=== PATIENT | female | born 1995 | race African-American/Black ===

== ENCOUNTER 2017-06-06 00:40 | Emergency (ER) | payer SELFPAY ==
[~2017-06-06] VITALS: Ht 149.9 cm; Wt 58.1 kg
--- OUTSIDE RECORDS SUMMARY | 2017-06-06 00:43 | XMS REPORT ---
Author Author [facility] Address Unknown Phone Unavailable Care Team Providers Care Infertility Medical Assistant Name Role Phone BISI TIM Unavailable Unavailable RENATO CALDERON Unavailable Unavailable LOIS KELLY Unavailable Unavailable Problems This patient has no known problems. Allergies, Adverse Reactions, Alerts This patient has no known allergies or adverse reactions. Medications This patient has no known medications. Results Test Description Test Time Test Comments Text Results Atomic Results Result Comments WET PREP 2017-03-17 00:26:00 WBC WET PREP (BEAKER) (test arxn=183) Few white blood cells seen CLUE CELLS (BEAKER) (test bqes=754) No clue cells seen YEAST WET PREP (BEAKER) (test tvrw=214) No budding yeast seen TRICH WET PREP (BEAKER) (test ntil=474) No Trichomonas seen BACT WET PREP (BEAKER) (test dazg=726) No bacteria seen SCREEN, [id number] 22:57:00* Test Item Value Reference Range Comments TEST URINE (BEAKER) (test xudq=616) Negative URINALYSIS W/ REFLEX URINE [id number] 22:55:00* Test Item Value Reference Range Comments COLOR (BEAKER) (test dgti=762) Dark Yellow CLARITY (BEAKER) (test snuh=985) Slightly Hazy SPECIFIC GRAVITY UA (BEAKER) (test uxxz=505) 1.025 1.001-1.035 PH UA (BEAKER) (test crzd=982) 6.0 5.0-8.0 PROTEIN UA (BEAKER) (test icdt=966) Negative Negative GLUCOSE UA (BEAKER) (test tkqh=500) Negative Negative KETONES UA (BEAKER) (test etgo=828) Negative Negative BILIRUBIN UA (BEAKER) (test gtjv=136) Negative Negative BLOOD UA (BEAKER) (test txdj=312) Large Negative NITRITE UA (BEAKER) (test umua=335) Negative Negative LEUKOCYTE ESTERASE UA (BEAKER) (test upnd=376) Negative Negative UROBILINOGEN UA (BEAKER) (test rpgr=685) 0.2 mg/dL 0.2-1.0 BACTERIA (BEAKER) (test hqvv=468) Rare MUCUS (BEAKER) (test eemz=8183) Moderate RBC UA-MANUAL (BEAKER) (test uwct=5178) 20-50 /HPF WBC UA-MANUAL (BEAKER) (test hgye=7993) <5 /HPF SQUAMOUS EPITHELIAL MANUAL (BEAKER) (test znxi=7216) <5 /HPF SOURCE(BEAKER) (test kxiy=1390) URINE [id number] 12:16:00* Test Item Value Reference Range Comments CULTURE (BEAKER) (test ctsa=4852) ESCHERICHIA COLI >100,000 col/mL Escherichia coli Amikacin (test code=1) Ampicillin + Sulbactam (test code=6) Aztreonam (test code=32) Cefepime (test code=51) Cefoxitin (test code=68) Ceftazidime (test code=27) Ceftriaxone (test code=52) Ertapenem (test code=38) Gentamicin (test code=18) Levofloxacin (test code=22) Meropenem (test code=34) Nitrofurantoin (test code=23) Piperacillin + Tazobactam (test code=29) Tetracycline (test code=2) Tobramycin (test code=25) Trimethoprim + Sulfamethoxazole (test code=47) URINALYSIS W/ [id number] 13:29:00* Test Item Value Reference Range Comments COLOR (BEAKER) (test nslp=625) Light Yellow CLARITY (BEAKER) (test qxij=401) Cloudy SPECIFIC GRAVITY UA (BEAKER) (test vcjo=721) 1.020 1.001-1.035 PH UA (BEAKER) (test chzv=840) 7.0 5.0-8.0 PROTEIN UA (BEAKER) (test rimp=964) 30 mg/dL Negative GLUCOSE UA (BEAKER) (test hgqj=151) Negative Negative KETONES UA (BEAKER) (test ypjm=165) Negative Negative BILIRUBIN UA (BEAKER) (test gjfi=092) Negative Negative BLOOD UA (BEAKER) (test mity=342) Moderate Negative NITRITE UA (BEAKER) (test ihub=492) Negative Negative LEUKOCYTE ESTERASE UA (BEAKER) (test zami=333) Large Negative UROBILINOGEN UA (BEAKER) (test mvig=128) 0.2 mg/dL 0.2-1.0 BACTERIA (BEAKER) (test nqrd=583) Many MUCUS (BEAKER) (test eiid=0558) Rare RBC UA-MANUAL (BEAKER) (test ljjs=3303) 10-20 /HPF WBC UA-MANUAL (BEAKER) (test nhsa=5386) >100 /HPF SQUAMOUS EPITHELIAL MANUAL (BEAKER) (test zfwd=9467) <5 /HPF SOURCE(BEAKER) (test nliz=9802) WET [id number] 16:18:00* Test Item Value Reference Range Comments WBC WET PREP (BEAKER) (test hyub=322) Few white blood cells seen CLUE CELLS (BEAKER) (test ewiw=566) No clue cells seen YEAST WET PREP (BEAKER) (test invk=733) No budding yeast seen TRICH WET PREP (BEAKER) (test hnna=416) No Trichomonas seen BACT WET PREP (BEAKER) (test soqo=408) Moderate bacteria seen SCREEN, [id number] 16:13:00* Test Item Value Reference Range Comments TEST URINE (BEAKER) (test xfuv=133) Positive URINALYSIS W/ [id number] 16:13:00* Test Item Value Reference Range Comments COLOR (BEAKER) (test mjdn=803) Yellow CLARITY (BEAKER) (test pgwj=307) Slightly Hazy SPECIFIC GRAVITY UA (BEAKER) (test xbvi=570) 1.025 1.001-1.035 PH UA (BEAKER) (test rapl=365) 6.5 5.0-8.0 PROTEIN UA (BEAKER) (test zjid=347) Negative Negative GLUCOSE UA (BEAKER) (test uurd=626) Negative Negative KETONES UA (BEAKER) (test gjrg=435) Negative Negative BILIRUBIN UA (BEAKER) (test xjsb=701) Negative Negative BLOOD UA (BEAKER) (test eawh=716) Negative Negative NITRITE UA (BEAKER) (test aiux=010) Negative Negative LEUKOCYTE ESTERASE UA (BEAKER) (test grhh=400) Negative Negative UROBILINOGEN UA (BEAKER) (test eegi=269) 0.2 mg/dL 0.2-1.0 BACTERIA (BEAKER) (test unov=121) Occasional MUCUS (BEAKER) (test whoa=7288) Many RBC UA-MANUAL (BEAKER) (test gsyd=6187) <5 /HPF WBC UA-MANUAL (BEAKER) (test rcfz=5159) <5 /HPF SQUAMOUS EPITHELIAL MANUAL (BEAKER) (test ccuu=8507) 5-10 /HPF SOURCE(BEAKER) (test pebw=6404)
--- OUTSIDE RECORDS SUMMARY | 2017-06-06 00:43 | XMS REPORT | Clinical Summary ---
Author Author [facility] Address Unknown Phone Unavailable Care Team Providers Care Industrial Organization Manager Name Role Phone PCP Unavailable Allergies No Known Allergies Current Medications Prescription Sig. Disp. Refills Start End Date Status Date PNV WITH CA,NO.72/IRON/FA Take 1 tablet by mouth 30 tablet 0 04/23/19 Active ( MULTIVITAMIN) daily. 17 Tab azithromycin (ZITHROMAX Take by mouth as 6 tablet 0 04/21/19 Discontin Z-THEODORE) 250 MG tablet directed.. 17 17 ued nitrofurantoin, Take 1 capsule (100 mg 10 capsule 0 08/07/19 macrocrystal-monohydrate, total) by mouth 2 (two) 17 17 (MACROBID) 100 MG capsule times daily for 5 days. Active Problems Not on file Encounters Date Type Specialty Care Team Description 03/16/2017 Emergency Emergency Medicine Aline Miller MD Vaginal bleeding (Primary - Dx) 03/17/2017 08/06/2016 Emergency Emergency Medicine Tyron Ng, Urinary tract infection without hematuria, site unspecified; and not yet delivered in second trimester 06/28/2016 Emergency Emergency Medicine Say Dickinson MD Vaginal discharge;14 weeks gestation of after 06/05/2016 Family History Medical History Relation Name Comments Unremarkable Father Hypertension Mother Relation Name Status Comments Father Mother Social History Tobacco Use Types Packs/Day Years Used Date Passive Smoke Exposure - Never Smoker Smokeless Tobacco: Never Used Alcohol Use Drinks/Week oz/Week Comments Yes socially Sex Assigned at Date Recorded Not on file Last Filed Vital Signs Vital Sign Reading Time Taken Blood Pressure 134/85 03/17/2017 12:19 AM [facility] Pulse 73 03/17/2017 12:19 AM [facility] Temperature 36.7 C (98 F) 03/16/2017 10:37 PM [facility] Respiratory Rate 16 03/17/2017 12:19 AM [facility] Oxygen Saturation 100% 03/17/2017 12:19 AM [facility] Inhaled Oxygen - - Concentration Weight 61.2 kg (135 lb) 03/16/2017 10:37 PM [facility] Height 149.9 cm (4' 11") 03/16/2017 10:37 PM [facility] Body Mass Index 27.27 03/16/2017 10:37 PM [facility] Plan of Treatment Not on file Results * Wet prep (03/17/2017 12:17 AM) Only the most recent of 2 results within the time period is included. Component Value Ref Range WBC - wet prep Few white blood cells seen Clue cells - wet prep No clue cells seen Yeast - wet prep No budding yeast seen Trichomonas - wet prep No Trichomonas seen Bacteria - wet prep No bacteria seen Specimen Performing Laboratory Genital - Cervix [facility], [facility] [place], [facility] [address] [place] [phone] * Urinalysis w/Microscopic + Reflex to Culture (03/16/2017 10:47 PM) Component Value Ref Range Color, UA Dark Yellow Clarity, UA Slightly Hazy Specific [place], UA 1.025 1.001 - 1.035 pH, UA 6.0 5.0 - 8.0 Protein, UA Negative Negative Glucose, UA Negative Negative Ketones, UA Negative Negative Bilirubin, UA Negative Negative Blood, UA Large (A) Negative Nitrite, UA Negative Negative Leukocytes, UA Negative Negative Urobilinogen, UA 0.2 0.2 - 1.0 mg/dL Bacteria, UA Rare Mucus Moderate RBC, UA 20-50 /HPF WBC, UA <5 /HPF SQUAMOUS EPITHELIAL <5 /HPF Specimen Source Specimen Performing Laboratory Urine [facility], [facility] [place] , [facility] [address] [place] [phone] * screen, urine (03/16/2017 10:47 PM) Only the most recent of 2 results within the time period is included. Component Value Ref Range Preg Test, Ur Negative Specimen Performing Laboratory Urine [facility], [facility] , [facility] [address] [place] [phone] * Urine culture (08/06/2016 1:40 PM) Component Value Ref Range Result >100,000 col/mL Escherichia coli (A) Specimen Performing Laboratory Urine - Urine, [facility] [address] [place] [id number] Organism Antibiotic Method Susceptibility Escherichia coli Amikacin <=2: Susceptible Escherichia coli Ampicillin + Sulbactam <=2: Susceptible Escherichia coli Aztreonam <=1: Susceptible Escherichia coli Cefepime <=1: Susceptible Escherichia coli Cefoxitin <=4: Susceptible Escherichia coli Ceftazidime <=1: Susceptible Escherichia coli Ceftriaxone <=1: Susceptible Escherichia coli Ertapenem <=0.5: Susceptible Escherichia coli Gentamicin <=1: Susceptible Escherichia coli Levofloxacin <=0.12: Susceptible Escherichia coli Meropenem <=0.25: Susceptible Escherichia coli Nitrofurantoin 32: Susceptible Escherichia coli Piperacillin + Tazobactam <=4: Susceptible Escherichia coli Tetracycline <=1: Susceptible Escherichia coli Tobramycin <=1: Susceptible Escherichia coli Trimethoprim + <=20: Susceptible Sulfamethoxazole * Urinalysis w/Microscopic - Clean Catch (08/06/2016 1:10 PM) Only the most recent of 2 results within the time period is included. Component Value Ref Range Color, UA Light Yellow Clarity, UA Cloudy Specific [place], UA 1.020 1.001 - 1.035 pH, UA 7.0 5.0 - 8.0 Protein, UA 30 mg/dL (A) Negative Glucose, UA Negative Negative Ketones, UA Negative Negative Bilirubin, UA Negative Negative Blood, UA Moderate (A) Negative Nitrite, UA Negative Negative Leukocytes, UA Large (A) Negative Urobilinogen, UA 0.2 0.2 - 1.0 mg/dL Bacteria, UA Many Mucus Rare RBC, UA 10-20 /HPF WBC, UA >100 /HPF SQUAMOUS EPITHELIAL <5 /HPF Specimen Source Specimen Performing Laboratory Urine - Urine, [facility], [facility] [address] [place] [phone] * STD Panel - CT/GC RNA (06/28/2016 4:02 PM) Component Value Ref Range C. trachomatis RNA, TMA NOT DETECTED N. gonorrhoeae RNA, TMA NOT DETECTED Comment: REFERENCE RANGE: C. TRACHOMATIS RNA, TMA: NOT DETECTED N. GONORRHOEAE RNA, TMA: NOT DETECTED This test was performed using the APTIMA(R) COMBO2 Assay (GEN-PROBE). Specimen Performing Laboratory Vaginal Fluid - Cervix [facility] [id number] [place] [phone] Narrative Performing Lab *[facility] [employer], [facility]. [id number] [place] [id number] Lindy Contreras MD after 06/05/2016
== END 2017-06-06 05:31 | disposition home or self-care (01) ==
LOC: FSED 00:40
DX: O46.8X1 Other antepartum hemorrhage, first trimester (principal); N93.9 Abnormal uterine and vaginal bleeding, unspecified; Z3A.00 Weeks of gestation of pregnancy not specified
CPT/HCPCS: 36415; 76817; 81025; 84702; 99283